=== PATIENT | male | born 1985 | race Caucasian/White ===

== ENCOUNTER → 2016-09-23 | Outpatient (REF) | LOC: WSOH 12:08 | DX: Z11.1 Encounter for screening for respiratory tuberculosis (principal) ==

== ENCOUNTER → 2016-10-11 | Outpatient (REF) | LOC: WSOH 10-09 09:38 | DX: Z00.00 Encounter for general adult medical examination without abnormal findings (principal) ==

== ENCOUNTER → 2017-05-12 | Outpatient (CLI) | payer SELFPAY | LOC: COL.LAB 15:26 | DX: Z02.5 Encounter for examination for participation in sport (principal) ==